=== PATIENT | female | born 1985 | race American Indian/Alaskan Native ===

== ENCOUNTER 2016-10-13 07:18 | Inpatient (IN) | payer MEDICAID ==
--- NOTE | 2016-10-13 07:57 | OBADHP ---
Datetime: 10/13/2016 07:39 IP Chief Complaint Other: 31 year old at 39 weeks Gestation admitted for labor induction for oligohydramnios. No Lof , no vaginal bleeding. Good movement. Admit Comment, IP Provider: 39 weeks Gestation. Reassuring Status.Admit for laborinduction Pelvic Type - PN: Adequate Extremities - PN: Normal Abdomen - PN: Normal Back - PN: Normal Breast - PN: Not Done Lungs - PN: Normal Heart - PN: Normal Thyroid - PN: Not Done Neurologic - PN: Not Done HEENT - PN: Not Done General - PN: Normal Weight - Estimated: 4000 Presentation-Admit: Vertex FHR - Baseline A Provider: 150 Membranes, Provider: Intact Contraction Comments Provider: irregular Gestation - Est Wks by US: 39.0 Vital Signs Provider: Reviewed; Within Normal Limits IP Chief Complaint: Scheduled induction of labor NICHD Variability Prov Fetus A: Moderate 6-25bpm NICHD Accel Fetus A IP Provider: 15X15 FHR Category Provider Fetus A: Category I NICHD Decel Fetus A IP Provider: None Dilatation, Provider: 1 Effacement, Provider: 30 Station, Provider: -2 Genitourinary Exam: Normal DTRs - PN: Normal IP Adm Impression: Term, intrauterine ; No Active Labor IP Admit Plan: Admit to unit; Initiate labor induction protocol
[2016-10-13 08:01] VITALS: BMI 31.3
[2016-10-13] MEDS ORDERED: Penicillin G 5 Million Unit Vial IVPB ONE ×2 (08:02→11:33)
[2016-10-13] MEDS ORDERED: Nalbuphine 20 mg/ml Inj (1 ml) IVP PRN (08:15)
[2016-10-13] MEDS ORDERED: Lactated Ringer's 1,000 ML IV SCH (08:15)
[2016-10-13 08:23] LABS: BASO % 0.5 % (0.0-2.0); EOS # 0.1 K/uL (0.0-0.7); HEMATOCRIT 30.8 % (34.0-47.0); LYMPH # 1.7 K/uL (1.0-4.3); LYMPH % 28.2 % (20.0-40.0); MEAN CELL VOLUME 91.1 fL (81.0-99.0); MEAN CORPUSCULAR HEMOGLOBIN 31.3 pg (27.0-31.0); MEAN CORPUSCULAR HGB CONC 34.4 g/dL (33.0-37.0); MEAN PLATELET VOLUME 7.3 fL (7.2-11.7); MONO # 0.5 K/uL (0.0-0.8); MONO % 7.9 % (0.0-10.0); NRBC % 0.1 % (0.0-2.0); RED CELL DISTRIBUTION WIDTH 16.4 % (11.5-14.5)
[2016-10-13 08:52] LABS: GFR AFRICAN-AMERICAN > 60; GLUCOSE,RANDOM 117 mg/dL (65-105)
[2016-10-13] MEDS ORDERED: Oxytocin 30 UNIT 30 UNITS/500 ML BAG IV PRN (13:26)
--- NOTE | 2016-10-13 20:18 | OBPN ---
Datetime: 10/13/2016 20:10 IP Progress Impression: Normal progression of labor; Reassuring heart rate IP Informed Consent Obtain: Vaginal Delivery; Risks, Benefits and Alternatives Discussed IP Procedures: Artificial ROM; Sterile Vag Exam IP Progress Plan: Continue present management; Anesthesia consult; Antibiotic therapy; Anticipate Va ginal Delivery Membranes, Provider: Ruptured Amniotic Fluid Color, Provider: Clear FHR - Baseline A Provider: 140 Gestation - Est Wks by US: 39.0 Weight - Estimated: 4000 Presentation-Admit: Vertex IP Progress Note Comment: Early Active Phase of Labor. Reassuring Status. Cervidil removed. Wi ll start Pitocin in 30 minutes. Vital Signs Provider: Reviewed; Within Normal Limits NICHD Accel Fetus A IP Provider: 15X15 FHR Category Provider Fetus A: Category I NICHD Variability Prov Fetus A: Moderate 6-25bpm Dilatation, Provider: 3-4 Effacement, Provider: 70 Station, Provider: -2 NICHD Decel Fetus A IP Provider: None Datetime: 10/13/2016 07:39 Contraction Comments Provider: irregular
[2016-10-13] MEDS ORDERED: Oxytocin 30 UNIT 30 UNITS/500 ML BAG IV SCH (20:30)
[2016-10-13] MEDS ORDERED: Oxytocin 30 UNIT 30 UNITS/500 ML BAG IV ONE (20:40)
[2016-10-13] MEDS ORDERED: Nalbuphine 20 mg/ml Inj (1 ml) ONE (20:49)
[2016-10-13] MEDS ORDERED: Bupivacaine 0.125%/FentaNYL 200 ML EPI ONE (22:23)
--- NOTE | 2016-10-13 22:28 | OBPN ---
Datetime: 10/13/2016 22:23 IP Progress Impression: Normal progression of labor; Reassuring heart rate IP Informed Consent Obtain: Vaginal Delivery; Risks, Benefits and Alternatives Discussed IP Procedures: Sterile Vag Exam IP Progress Plan: Continue present management; Anesthesia consult; Anticipate Vaginal Delivery Membranes, Provider: Ruptured Contraction Comments Provider: Q 3min. FHR - Baseline A Provider: 140 Gestation - Est Wks by US: 39.0 Weight - Estimated: 4000 Presentation-Admit: Vertex IP Progress Note Comment: Active Phase of labor. Reassuring Status. Epidural Analgesia. Antici rosas Vital Signs Provider: Reviewed; Within Normal Limits FHR Category Provider Fetus A: Category I NICHD Variability Prov Fetus A: Moderate 6-25bpm Dilatation, Provider: 5 Effacement, Provider: 80 Station, Provider: -1 NICHD Decel Fetus A IP Provider: None
--- NOTE | 2016-10-14 01:26 | OBPN ---
Datetime: 10/14/2016 01:21 IP Progress Impression: Normal progression of labor; Reassuring heart rate IP Informed Consent Obtain: Vaginal Delivery; Risks, Benefits and Alternatives Discussed IP Procedures: Sterile Vag Exam IP Progress Plan: Continue present management; Augmentation; Anticipate Vaginal Delivery Membranes, Provider: Ruptured Contraction Comments Provider: Q 3min. FHR - Baseline A Provider: 130 Gestation - Est Wks by US: 39.0 Weight - Estimated: 4000 Presentation-Admit: Vertex IP Progress Note Comment: Active Labor. Anticipate FHR Category Provider Fetus A: Category I NICHD Variability Prov Fetus A: Moderate 6-25bpm Dilatation, Provider: 9 Effacement, Provider: 100 Station, Provider: -1 NICHD Decel Fetus A IP Provider: None
--- NOTE | 2016-10-14 03:08 | OBPN ---
Datetime: 10/14/2016 03:03 IP Progress Impression: Normal progression of labor; Reassuring heart rate IP Informed Consent Obtain: Vaginal Delivery; Risks, Benefits and Alternatives Discussed IP Procedures: Sterile Speculum Exam IP Progress Plan: Continue present management; Anticipate Vaginal Delivery Membranes, Provider: Ruptured Contraction Comments Provider: Q 2min. FHR - Baseline A Provider: 150 Gestation - Est Wks by US: 39.0 Weight - Estimated: 4000 Presentation-Admit: Vertex IP Progress Note Comment: Second Stage of Labor. Reassuring Status. Anticipate . Vital Signs Provider: Reviewed; Within Normal Limits FHR Category Provider Fetus A: Category I NICHD Variability Prov Fetus A: Moderate 6-25bpm Dilatation, Provider: 10 Effacement, Provider: 100 Station, Provider: 0 NICHD Decel Fetus A IP Provider: None
--- NOTE | 2016-10-14 04:58 | OBDS ---
DELIVERY PERSONNEL Delivery Doctor: Melisa Parada MD Scrub Nurse: Ranjana Cai Spanish Translator: Blanca Mcdonough RN Anesthesiologist: MATERNAL INFORMATION Delivery Anesthesia: Epidural Medications in Delivery: Pitocin Estimated Blood Loss (ml): 300 Placenta Cultured: No Maternal Complications: None RN Comments: Live baby boy born via with 9_9 Provider Comments: to a viable boy. 's 9/9 LABOR SUMMARY EDC: 10/19/2016 00:00 No. Babies in Womb: 1 Attempted: No Labor Anesthesia: Epidural LABOR INFORMATION Reason for Induction: Not Applicable Complete Dilatation: 10/14/2016 02:53 Cervical Ripening Agents: Cervidil was removed by Oxytocin: Augmentation Group B Beta Strep: Positive (Annotations: 09/24/16) Antibiotics # of Doses: 4 Antibiotics Time of Last Dose: 2340 Steroids Given: None Reason Steroids Not Administered: Not Applicable MEMBRANES Membranes Rupture Method: Artificial Rupture of Membranes: 10/13/2016 20:05 Length of Rupture (hrs): 8.10 Amniotic Fluid Color: Clear Amniotic Fluid Amount: Moderate Amniotic Fluid Odor: Normal STAGES OF LABOR Stage 2 hrs: 1 Stage 2 min: 18 Stage 3 hrs: 0 Stage 3 min: 16 VAGINAL DELIVERY Episiotomy: None Laceration Extension: N/A Laceration Type: None Laceration Repair: Not Applicable Initial Vag Sponge Count: 10 Final Vag Sponge Count: 10 Initial Vag Sharps Count: 0 Final Vag Sharps Count: 0 Sponge Count Correct: Yes; Vaginal Sweep Performed Sharps Count Correct: Yes BABY A INFORMATION Delivery Date/Time: 10/14/2016 04:11 Method of Delivery: Vaginal Born in Route : No : N/A Forceps: N/A Vacuum Extraction: N/A Shoulder Dystocia : No SHOULDER DYSTOCIA BABY A Delivery Date/Time: 10/14/2016 04:11 PRESENTATION/POSITION BABY A Presentation: Cephalic Cephalic Presentation: Vertex Vertex Position: Left Occipital Anterior Breech Presentation: N/A PLACENTA INFORMATION BABY A Placenta Delivery Time : 10/14/2016 04:27 Placenta Method of Delivery: Spontaneous Placenta Status: Delivered SCORES BABY A Heart Rate 1 min: >100 bpm Resp Effort 1 min: Good Cry Reflex Irritability 1 min: Cough or Sneeze or Pulls Away Muscle Tone 1 min: Active Motion Color 1 min: Body Bricelyn, Extremities Blue SCORE 1 MIN: 9 Heart Rate 5 min: >100 bpm Resp Effort 5 min: Good Cry Reflex Irritability 5 min: Cough or Sneeze or Pulls Away Muscle Tone 5 min: Active Motion Color 5 min: Body Bricelyn, Extremities Blue SCORE 5 MIN: 9 INFANT INFORMATION BABY A Gestational Age at Delivery: 39.2 Gestational Status: Term Infant Outcome : Liveborn Infant Condition : Stable Sex: Male IDENTIFICATION/MEDS BABY A ID Band Number: [id number] ID Band Location: Left Leg; Left Arm Sensor Applied: Yes Sensor Number: [id number] Sensor Location : Cord Clamp WEIGHT/LENGTH BABY A Birthweight (gms): 4535 Infant Weight (lb): 10 Weight (oz): 0 Infant Length Inches: 21.25 Length cms: 54.0 CORD INFORMATION BABY A No. Cord Vessels: 3 Nuchal Cord : N/A Cord Blood Taken: Yes Infant Suction: Mouth; Nose ASSESSMENT BABY A Complications: None Physical Findings at Delivery: Within Normal Limits Infant Respirations: Appears Normal Canvas Worker Apprentice/ALS Called : No Care By: Cami Dang RN Transferred To: Remains with Mother
[2016-10-14] MEDS: Multiple Vitamins Tab PO SCH (10:00)
[2016-10-15 09:29] LABS: HEMATOCRIT 31.2 % (34.0-47.0)
[2016-10-15] MEDS: Multiple Vitamins Tab PO SCH (10:24)
[2016-10-15 10:55] VITALS: BP 109/56; PULSE 65; RESP 18; TEMP 97.5; O2SAT 99
--- NOTE | 2016-10-15 14:24 | OBPPN ---
Datetime: 10/15/2016 14:20 PP Pain Prov: Within normal limits PP Nausea Prov: Denies PP Flatus Prov: Yes PP BM Prov: Yes PP Breasts Prov: Normal PP Heart Prov: Normal PP Lungs Prov: Normal PP Abdomen/Uterus Prov: Normal PP Lochia Prov: Normal PP Vulva/Perineum Prov: Normal PP CVA Tenderness Prov: Normal PP Extremities Prov: Normal PP C/S Incision Prov: Not Applicable PP Progress Prov: Normal PP Comments Phys Exam Prov: Uterus firm and contracted, lochia minimal. PP Impression Prov: Normal progression PP Plan Prov: Discharge IP PP Procedures: None Vital Signs Provider PP: Reviewed; Within Normal Limits
--- NOTE | 2016-10-15 14:28 | OBDCSUM ---
Datetime: 10/15/2016 11:06 Discharged to, Provider: Home Follow up at, Provider: Dr. Parada Disch Instr Activity: Normal activity Disch Instr Diet: Regular Discharge Instructions, Provider: Routine instructions given Discharge Diagnosis, Provider: Term Delivered Discharge Time: 10/15/2016 11:08 Disch Referrals: None Contraception discussed, Prov: Yes Disch Activity Restrictions: No sexual activity; Nothing in vagina - Orange, tampons, douche Discharge Diagnosis Prov Other: Contraception after Delivery: Tubal Ligation
== END 2016-10-15 16:55 | disposition home or self-care (01) | DRG 373 ==
LOC: C.4D 07:18 → MERGE 07:18 → C.4M 10-14 09:58
PROVIDERS: ADMIT Obstetrics & Gynecology; ATTEND Obstetrics & Gynecology
PROC: 10907ZC Drainage of Amniotic Fluid, Therapeutic from Products of Conception, Via Natural or Artificial Opening (ICD-10-PCS; 2016-10-13)
PROC: 3E0P7GC Introduction of Other Therapeutic Substance into Female Reproductive, Via Natural or Artificial Opening (ICD-10-PCS; 2016-10-13)
PROC: 10E0XZZ Delivery of Products of Conception, External Approach (ICD-10-PCS; principal; 2016-10-14)
DX: O41.03X0 Oligohydramnios, third trimester, not applicable or unspecified (principal); O99.824 Streptococcus B carrier state complicating childbirth; Z37.0 Single live birth; Z3A.39 39 weeks gestation of pregnancy